=== PATIENT | male | born 1945 | race Caucasian/White ===

== ENCOUNTER 2019-02-05 07:56 | Emergency (ER) | payer MEDICARE, BC ==
[2019-02-05 08:16] VITALS: BP 155/99
--- NOTE | 2019-02-05 09:24 | UC ---
Abdominal Pain Male HPI - HPI Summary HPI Summary: Pt presents with c/o sudden onset of generalized malaise, bloody stool, abdominal discomfort and decreased appetite X 3 days. Pt states he was in the [place] last week and he went kayaking. He denies drinking water from any water sources other then from home water, treated. Pt denies fever or chills nasuea or vomiting. Pt has decreased urine output. Had last colonoscopy in 2018, states it was "negative". Pt does report that he visited a relative in a [facility] where he states has "frequent c-diff" - History of Current Complaint Chief Complaint: UCGI Stated Complaint: LOOSE/BLOODY STOOL Time Seen by Provider: 02/05/19 08:33 Hx Obtained From: Patient Onset/Duration: Sudden Onset, Lasting Days, Still Present Timing: Constant Severity Initially: Mild Severity Currently: Moderate Pain Intensity: 3 Pain Scale Used: 0-10 Numeric Location: Diffuse Radiates: No Character: Colicy, Cramping, Dull Aggravating Factor(s): Food Alleviating Factor(s): Nothing Associated Signs And Symptoms: Positive: Blood in Stool - BRBPR, Diarrhea - Risk Factors Testicular Torsion: Negative Cardiac Risk Factors: Negative - Allergies/Home Medications Allergies/Adverse Reactions: Allergies Allergy/AdvReac Type Severity Reaction Status Date / Time No Known Allergies Allergy Verified 02/05/19 08:16 Home Medications: Home Medications Glucosamine Sulfate [Glucosamine Sulfate Maxim] 1,000 mg PO DAILY 02/05/19 [ History Confirmed 02/05/19] PMH/Surg Hx/FS Hx/Imm Hx Previously Healthy: Yes Cardiovascular History: Cardiac Disease - Surgical History Surgical History: Yes Surgery Procedure, Year, and Place: 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; 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; basal cell ca removed 10 yrs ago - Family History Known Family History: Positive: Cardiac Disease - Social History Occupation: Retired Lives: With Family Alcohol Use: Daily Alcohol Amount: 1 ev or beer Substance Use Type: None Smoking Status (MU): Never Smoked Tobacco Have You Smoked in the Last Year: No - Immunization History Most Recent Tetanus Shot: 2011 Vaccination Up to Date: Yes Review of Systems All Other Systems Reviewed And Are Negative: Yes Constitutional: Positive: Fatigue Skin: Positive: Negative Eyes: Positive: Negative ENT: Positive: Negative Respiratory: Positive: Negative Cardiovascular: Positive: Negative Gastrointestinal: Positive: Abdominal Pain, Diarrhea - bloody Genitourinary: Positive: Negative Motor: Positive: Negative Neurovascular: Positive: Negative Musculoskeletal: Positive: Negative Neurological: Positive: Negative Psychological: Positive: Negative Is Patient Immunocompromised?: No Physical Exam Triage Information Reviewed: Yes Appearance: Well-Appearing Vital Signs: Initial Vital Signs Temp 97.7 F 02/05/19 08:10 Pulse 85 02/05/19 08:10 Resp 18 02/05/19 08:10 BP 155/99 02/05/19 08:10 Pulse Ox 97 02/05/19 08:10 Vital Signs Reviewed: Yes Eye Exam: Normal ENT Exam: Normal ENT: Positive: Hearing grossly normal Dental Exam: Normal Neck exam: Normal Respiratory Exam: Normal Cardiovascular Exam: Normal Abdominal Exam: Other Abdomen Description: Positive: Other: - generalized discomfort Bowel Sounds: Positive: Present Musculoskeletal Exam: Normal Neurological Exam: Normal Psychological Exam: Normal Skin Exam: Normal Abd Pain Male Course/Dx - Course Course Of Treatment: Pt brought in a stool sample that is liquid and bright red in color. Denies eating any beets. - Differential Dx/Clinical Impression Differential Diagnosis/HQI/PQRI: Diverticulitis, Other - parasitic infection, food posioning. Provider Diagnosis: Noman blood in stool, Abdominal pain Discharge - Sign-Out/Discharge Documenting (check all that apply): Patient Departure All imaging exams completed and their final reports reviewed: No Studies - Discharge Plan Condition: Stable Disposition: HOME-RECOMMEND TO ED Patient Education Materials: Melena (ED) Referrals: Tamika Angelo MD [Primary Care Provider] - As Soon As Possible Additional Instructions: Please go directly to an Emergency Department. - Billing Disposition and Condition Condition: STABLE Disposition: Home-Recommend to ED - Attestation Statements Provider Attestation: I was available for consult. This patient was seen by the PRADEEP. The patient was not presented to, seen by, or examined by me. -Roderick
== END 2019-02-05 08:54 | disposition home health service (06) ==
LOC: UCCORT 07:56
DX: K92.1 Melena (principal); R10.84 Generalized abdominal pain
CPT/HCPCS: 99212; G0463

== ENCOUNTER 2019-02-05 10:01 | Emergency (ER) | payer MEDICARE, BC ==
--- NOTE | 2019-02-05 10:57 | ED ---
GI/ HPI - HPI Summary HPI Summary: Patient is a 73 y/o M presenting to ED with complaints of abdominal pain and episodes of bloody diarrhea. Bloody diarrhea onset 02/03/19 in the afternoon. Patient reports that the abdominal pain onset 02/02/19 afternoon. Pain is located at lower abdomen and is described as intermittent and cramping. Patient notes that he was nauseous earlier today 02/05/19 at around 0300 but did not vomit. He denies fever, chills, diaphoresis, SOB, and chest pain. He denies Hx of cdiff. Patient does note that he was in the [facility] recently and had gone to visit a relative who is in a [facility]. He states that there were people in the [facility] with cdiff and that he used a general restroom in the facility. Patient notes prior colonoscopy. Pt does not report any erythema of eyes, sore throat, cough, vomiting, dysuria, hematuria, myalgia, edema, rash, or dizziness. On triage, pain is rated 3/10. Nothing is noted to aggravate/ alleviate Sx. Home medications and allergies are reviewed. - History of Current Complaint Chief Complaint: EDGIBleed Time Seen by Provider: 02/05/19 10:20 Stated Complaint: LOOSE BLOODY STOOL Hx Obtained From: Patient Onset/Duration: Started Days Ago - diarrhea onset 02/03/19 in the afternoon, abdominal pain onset 02/02/19 afternoon, Still Present Timing: Constant - diarrhea onset 02/03/19 in the afternoon, abdominal pain onset 02/02/19 afternoon, Lasting Days - diarrhea onset 02/03/19 in the afternoon, abdominal pain onset 02/02/19 afternoon Severity: Mild Current Severity: Mild Pain Intensity: 3 Location of Pain: Other - lower abdomen Pain Characteristics: Cramping Associated Signs and Symptoms: Positive: Nausea, Blood w/Stool, Diarrhea, Abdominal Pain, Other: - negative - SOB, erythema of eyes, sore throat, cough, vomiting, dysuria, hematuria, myalgia, edema, rash, or dizziness. 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 - Surgical History Surgery Procedure, Year, and Place: 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; 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; basal cell ca removed 10 yrs ago Infectious Disease History: No Infectious Disease History: Denies: Hx Clostridium Difficile, Hx Hepatitis, Hx Human Immunodeficiency Virus (HIV), Hx of Known/Suspected MRSA, Hx Shingles, Hx Tuberculosis, Hx Known/ Suspected VRE, Hx Known/Suspected VRSA, History Other Infectious Disease, Traveled Outside the [place] in Last 30 Days - Family History Known Family History: Positive: Cardiac Disease - Social History Alcohol Use: Daily Alcohol Amount: 1 ev or beer Substance Use Type: Reports: None Smoking Status (MU): Never Smoked Tobacco Have You Smoked in the Last Year: No Review of Systems Negative: Fever, Chills, Skin Diaphoresis Negative: Erythema Negative: Sore Throat Negative: Chest Pain Negative: Shortness Of Breath, Cough Positive: Abdominal Pain, Diarrhea - w/ blood , Nausea. Negative: Vomiting Negative: dysuria, hematuria Negative: Myalgia, Edema Negative: Rash Neurological: Other - negative - dizziness All Other Systems Reviewed And Are Negative: Yes Physical Exam - Summary Physical Exam Summary: Constitutional: Well-developed, Well-nourished, Alert. (-) Distressed Skin: Warm, Dry HENT: Normocephalic; Atraumatic Eyes: Conjunctiva normal Neck: Musculoskeletal ROM normal neck. (-) JVD, (-) Stridor, (-) Tracheal deviation Cardio: Rhythm regular, rate normal, Heart sounds normal; Intact distal pulses; The pedal pulses are 2+ and symmetric. Radial pulses are 2+ and symmetric. (-) Murmur Pulmonary/Chest wall: Effort normal. (-) Respiratory distress, (-) Wheezes, (-) Rales Abd: Soft, (+) suprapubic and LLQ tenderness (-) Distension, (-) Guarding, (-) Rebound Musculoskeletal: (-) Edema Lymph: (-) Cervical adenopathy Neuro: Alert, Oriented x3 Psych: Mood and affect Normal Triage Information Reviewed: Yes Vital Signs On Initial Exam: Initial Vitals Temp Pulse Resp BP Pulse Ox 97.0 F 83 17 150/103 97 02/05/19 10:04 02/05/19 10:04 02/05/19 10:04 02/05/19 10:04 02/05/19 10:04 Vital Signs Reviewed: Yes Diagnostics - Vital Signs Vital Signs Temp Pulse Resp BP Pulse Ox 02/05/19 10:04 97.0 F 83 17 150/103 97 - Laboratory Result Diagrams: 02/05/19 14:49 02/05/19 10:51 Lab Statement: Any lab studies that have been ordered have been reviewed, and results considered in the medical decision making process. - CT CT ABD/PEL CT Interpretation Completed By: Radiologist Summary of CT Findings: CT ABD/PEL IMPRESSION: 1. Multiple areas of mucosal thickening throughout the colon suspicious for colitis. Etiology is unclear. No abscess is noted. 2. Hepatic steatosis with likely small hepatic cyst. THIS REPORT WAS REVIEWED BY DR. BAUMAN. - EKG 1040 Cardiac Rate: NL - rate of 69 BPM EKG Rhythm: Sinus Rhythm Summary of EKG Findings: EKG showed sinus rhythm with rate of 69 BPM, no STEMI. Re-Evaluation - Re-Evaluation First Eval Re-Evaluation Time: 14:35 Change: Improved Comment: Patient walking around ED and tolerating ambulation well. He is not feeling weak or off balance. As he had complaints of bloody diarrhea, will repeat CBC. GIGU Course/Dx - Course Course Of Treatment: Patient is a 73 y/o M presenting to ED with complaints of abdominal pain and episodes of bloody diarrhea. Bloody diarrhea onset 02/03/19, abdominal pain onset 02/02/19 afternoon. Pain is located at lower abdomen and is described as intermittent and cramping. Patient notes that he was nauseous earlier today 02/05/19 at around 0300 but did not vomit. He denies fever, chills, diaphoresis, SOB, and chest pain. He denies Hx of cdiff but is concerned he may have come into contact with it. On physical exam, suprapubic and LLQ tenderness is noted. EKG showed sinus rhythm with rate of 69 BPM, no STEMI. CT ABD/PEL IMPRESSION: 1. Multiple areas of mucosal thickening throughout the colon suspicious for colitis. Etiology is unclear. No abscess is noted. 2. Hepatic steatosis with likely small hepatic cyst. Initial CBC showed Hgb 15.4, Hct 46, RBC 5.22. Abnormal labs include MPV 6.7, absolute neuts 8, glucose 143. Lactic was 1, trop 0. Second lactic was 0.8. UA showed 1+ protein, trace WBC, 1 + RBC, hyaline casts present, ascorbic acid present. Repeat CBC showed RBC 5.13 , Hgb 15.5, Hct 45. Abnormal values include MPV 7 and WBC 11.2. C diff test was negative. Patient given PCP and GI follow up. Strict return precautions given. Patient agreeable with this plan. - Diagnoses Provider Diagnoses: Colitis Discharge - Sign-Out/Discharge Documenting (check all that apply): Patient Departure - discharge Patient Received Moderate/Deep Sedation with Procedure: No - Discharge Plan Condition: Stable Disposition: HOME Prescriptions: Ciprofloxacin TAB* [Cipro 500 MG TAB*] 500 mg PO BID #28 tab metroNIDAZOLE [Flagyl 500 MG TAB] 500 mg PO TID #42 tab Patient Education Materials: Colitis (ED) Referrals: Tamika Angelo MD [Primary Care Provider] - 3 Days Gary Tyler MD [Medical Doctor] - 7 Days Additional Instructions: RETURN TO THE EMERGENCY DEPARTMENT FOR CHANGING OR WORSENING SYMPTOMS. FOLLOW UP WITH YOUR PRIMARY CARE PHYSICIAN IN 2-3 DAYS AND CHANNELING MACHINE RUNNER IN 5 - 7 DAYS. - Attestation Statements Document Initiated by Scribe: Yes Documenting Scribe: ERIC العراقي Provider For Whom Scribe is Documenting (Include Credential): CHRIST BAUMAN MD Scribe Attestation: I, ERIC العراقي, scribed for CHRIST BAUMAN MD on 02/05/19 at 1523. Status of Scribe Document: Ready
[2019-02-05 10:59] LABS: ABS Eosinophils 0.1 10^3/ul (0-0.6); ABS Lymphocytes 1.1 10^3/ul (1.0-4.8); ABS Monocytes 0.8 10^3/ul (0-0.8); Eosinophil % 0.6 %; Hematocrit 46 % (42-52); Hemoglobin 15.4 g/dL (14.0-18.0); Lymphocyte % 10.7 %; Mean Corpuscular HGB Conc 34 g/dL (31-36); Mean Corpuscular Hemoglobin 30 pg (27-31); Mean Corpuscular Volume 88 fL (80-94); Mean Platelet Volume 6.7 fL (7.4-10.4); Platelet Count 193 10^3/uL (150-450); Red Blood Count 5.22 10^6 /uL (4.18-5.48); Red Cell Distribution Width 14 % (10-15)
[2019-02-05 11:07] LABS: Activated Partial Thrombo Time 32.2 seconds (26.0-38.0)
[2019-02-05 11:23] LABS: Albumin/Globulin Ratio 1.6 (1-3); BUN/Creatinine Ratio 15.7 (8-20); EGFR African American 109.3 (>60); EGFR Non-African American 90.3 (>60); Globulin 2.5 g/dL (2-4); Total Bilirubin 0.6 mg/dL (0.2-1.0); Total Protein 6.5 g/dL (6.4-8.9)
[2019-02-05] MEDS ORDERED: Iohexol 300* (CONTRAST) 10 ML SDV IV ONE (11:51)
[2019-02-05 13:07] LABS: Urine Appearance Cloudy; Urine Bacteria Absent (Absent); Urine Bilirubin Negative (Negative); Urine Blood Negative (Negative); Urine Color Amber; Urine Glucose Negative (Negative); Urine Ketones Negative (Negative); Urine Nitrite Negative (Negative); Urine Protein 1+(30 mg/dL) (Negative); Urine Red Blood Cell 1+(3-5/hpf) (Absent); Urine Specific Gravity 1.028 (1.010-1.030); Urine Urobilinogen Negative (Negative); Urine White Blood Cell Trace(0-5/hpf) (Absent)
[2019-02-05 15:01] LABS: Hematocrit 45 % (42-52); Hemoglobin 15.5 g/dL (14.0-18.0); Mean Corpuscular HGB Conc 34 g/dL (31-36); Mean Corpuscular Hemoglobin 30 pg (27-31); Mean Corpuscular Volume 88 fL (80-94); Platelet Count 186 10^3/uL (150-450); Red Blood Count 5.13 10^6 /uL (4.18-5.48); Red Cell Distribution Width 14 % (10-15); White Blood Count 11.2 10^3/uL (3.5-10.8)
[2019-02-05 15:14] VITALS: BP 173/95
== END 2019-02-05 15:14 | disposition home or self-care (01) ==
LOC: ED 10:01
DX: K52.9 Noninfective gastroenteritis and colitis, unspecified (principal); K92.1 Melena; R10.9 Unspecified abdominal pain; R11.0 Nausea
CPT/HCPCS: 36415; 74177; 80053; 81003; 81015; 83605; 84484; 85025; 85027; 85610; 85730; 86850; 86900; 86901; 87040; 87045; 87046; 87077; 87086; 87177; 87209; 87328; 87329; 87493; 87899; 93005; 99283; Q9967